=== PATIENT | female | born 1940 | race Caucasian/White ===

== ENCOUNTER → 2018-04-22 17:43 | Outpatient (CLI) | payer MEDICARE, BC | END | disposition home or self-care (01) | LOC: D.MAMMO 03-19 15:30 | DX: Z12.31 Encounter for screening mammogram for malignant neoplasm of breast (principal) ==

== ENCOUNTER → 2018-05-06 15:10 | Outpatient (CLI) | payer MEDICARE, BC | END | disposition home or self-care (01) | LOC: D.CT 15:10 | DX: R91.8 Other nonspecific abnormal finding of lung field (principal) ==